=== PATIENT | female | born 1975 | race Caucasian/White ===

== ENCOUNTER 2024-07-31 16:05 | Outpatient (OUT) | payer OTHER, SELFPAY ==
--- NOTE | 2024-07-31 | XR_ITS ---
The [address] [address] Patient Name: MONISHA NOWAK MRN: [id number] date: 1975 Sex: F Assigned Patient Location: [facility] Current Patient Location: [facility] Accession/Order Number: [id number] Exam Date: 07/31/2024 16:20 Report Date: 07/31/2024 17:40 At the request of: NON-STAFF PHYSICIAN Procedure: XR knee LT 4V EXAM: XR knee LT 4V HISTORY: Left knee pain COMPARISON: None. TECHNIQUE: 4 views of the left knee were obtained. FINDINGS: There is no evidence of an acute fracture or dislocation. The joint spaces are intact throughout. No osteochondral injury is identified. There is no evidence of a significant joint effusion. XR/XR knee LT 4V IMPRESSION: No acute fracture or dislocation. No significant degenerative changes are present. Electronically authenticated by: SUNG VICTORIA Date: 07/31/2024 17:40
== END 2024-07-31 16:06 | disposition home or self-care (01) ==
LOC: RAD 16:09
PROVIDERS: PCP Family Medicine
DX: M25.562 Pain in left knee (principal)
CPT/HCPCS: 73564